=== PATIENT | male | born 1980 | race Caucasian/White ===

== ENCOUNTER 2018-01-11 19:53 | Emergency (ER) | payer OTHER ==
--- NOTE | 2018-01-11 20:04 | EDM.PDOC ---
ED HPI GENERAL MEDICAL PROBLEM - General Chief Complaint: Upper Extremity Injury/Pain Stated Complaint: LEFT HAND INJURY Time Seen by Provider: 01/11/18 19:57 Source of Information: Reports: Patient History Limitations: Reports: No Limitations - History of Present Illness INITIAL COMMENTS - FREE TEXT/NARRATIVE: 37 YO WM presents to ER with left ring finger crush injury from forklift hydraulic lift. Pt reports he got his finger distal phalange caught between the hydraulic arm of the lift. Pt denies any other injury. Pt controlled bleeding with compression. Onset: Today Onset Date: 01/11/18 Onset Time: 19:00 Duration: Hour(s): (1) Location: Reports: Upper Extremity, Left Quality: Reports: Ache Severity: Moderate Improves with: Reports: None Worsens with: Reports: None Associated Symptoms: Reports: No Other Symptoms - Related Data Allergies Allergy/AdvReac Type Severity Reaction Status Date / Time No Known Allergies Allergy Verified 01/11/18 20:47 Home Meds: Home Meds Amoxicillin/Clavulanate K [Augmentin 875-125 MG] 1 tab PO BID #20 tablet [Rx] traMADol [Ultram] 50 mg PO Q6H PRN #10 tab 01/11/18 [Rx] Review of Systems - Review of Systems Review Of Systems: See Below Constitutional: Reports: No Symptoms Eyes: Reports: No Symptoms Ears: Reports: No Symptoms Nose: Reports: No Symptoms Mouth/Throat: Reports: No Symptoms Respiratory: Reports: No Symptoms Cardiovascular: Reports: No Symptoms GI/Abdominal: Reports: No Symptoms Genitourinary: Reports: No Symptoms Musculoskeletal: Reports: Hand Pain Skin: Reports: Wound (crush injury to distal 4th phalange) Neurological: Reports: No Symptoms Psychiatric: Reports: No Symptoms ED EXAM, GENERAL - Physical Exam Exam: See Below Exam Limited By: No Limitations General Appearance: Alert, WD/WN, No Apparent Distress Head: Atraumatic, Normocephalic Neck: Normal Inspection, Supple, Non-Tender, Full Range of Motion Respiratory/Chest: No Respiratory Distress, Lungs Clear, Normal Breath Sounds, No Accessory Muscle Use, Chest Non-Tender Cardiovascular: Normal Peripheral Pulses, Regular Rate, Rhythm, No Edema, No Gallop, No JVD, No Murmur, No Rub GI/Abdominal: Normal Bowel Sounds, Soft, Non-Tender, No Organomegaly, No Distention, No Abnormal Bruit, No Mass Rectal (Males) Exam: Normal Exam, Normal Rectal Tone, Prostate Normal Back Exam: Normal Inspection, Full Range of Motion, NT Extremities: Normal Inspection, Normal Range of Motion, No Pedal Edema, Normal Capillary Refill Neurological: Alert, Oriented, CN II-XII Intact, Normal Cognition, Normal Gait, Normal Reflexes, No Motor/Sensory Deficits Psychiatric: Normal Affect, Normal Mood Skin Exam: Warm, Dry, Intact, Normal Color, No Rash, Wound/Incision (crush injury to distal left 4th digit) Lymphatic: No Adenopathy ED TRAUMA EXTREMITY PROCEDURES - Laceration/Wound Repair Left Distal Finger Lac/Wound Length In cm: 5 Appearance: Heavily Contaminated Distal NVT: Neuro & Vascular Intact, No Tendon Injury Anesthetic Type: Digital Local Anesthesia - Lidocaine (Xylocaine): 1% Plain Local Anesthetic Volume: Other (10cc) Skin Prep: Providone-Iodine (Betadine), Saline, Sterile Drape Exploration/Debridement/Repair: Wound Explored, In a Bloodless Field, Explored to Base Closed With: Sutures Suture Size: 4-0 # of Sutures: 8 Sterile Dressing Applied: Provider Tetanus Status Addressed: Yes Complications: No - Splinting Left 4th Digit Pre-Procedure NV Status: Normal Post-Procedure NV Status: Normal Splint Material: Metal Applied & Form Fitted By: Provider Provider Post-Splint Application NV Check: NV Status Normal, Good Position Complications: No Course - Orders/Labs/Meds Orders: Active Orders 24 hr Category Date Time Status Hand Comp Min 3V Lt [CR] Stat Exams 01/11/18 19:59 Ordered Departure - Departure Time of Disposition: 21:22 Disposition: Home, Self-Care 01 Condition: Good Clinical Impression: Crushing injury of finger of left hand, Fracture of distal phalanx of finger of left hand Laceration of finger of left hand Qualifiers: Encounter type: initial encounter Finger: ring finger Damage to nail status: with damage Foreign body presence: without foreign body Qualified Code(s): S61.315A - Laceration without foreign body of left ring finger with damage to nail, initial encounter - Discharge Information Prescriptions: Amoxicillin/Clavulanate K [Augmentin 875-125 MG] 1 tab PO BID #20 tablet traMADol [Ultram] 50 mg PO Q6H PRN #10 tab PRN Reason: Pain Instructions: Crush Injury of the Hand, [id number], Laceration Care, Adult, Finger Fracture Referrals: PCP,Not In Area [Primary Care Provider] - Christopher Perez MD [Physician] - Forms: ED Department Discharge - My Orders Last 24 Hours: My Active Orders 01/11/18 19:59 Hand Comp Min 3V Lt [CR] Stat - Assessment/Plan Last 24 Hours: My Active Orders 01/11/18 19:59 Hand Comp Min 3V Lt [CR] Stat Assessment:: 1. distal left 4th digit fracture and crush injury Plan: 1. Discussed case with Dr Aliya Ordonez who recommended soak/irrigation/ approximation of wound/antibiotics and follow up with hand/ortho this week. 2. Augmentin 875mg PO BID x 10 days 3. Ultram 50mg PO Q6 #10 PRN Pain 4. follow up with ortho- Dr Sanders- Ortho this week 5. return to ER for worsening symptoms
[2018-01-11] MEDS ORDERED: ceFAZolin 1 GM Vial IM ONE (20:49)
[2018-01-11] MEDS ORDERED: Lidocaine 1% 20 ML MDV ONE (20:57)
[2018-01-11] MEDS ORDERED: Water For Injection, Sterile 20 ML ONE (21:06)
[2018-01-11] MEDS ORDERED: Acetaminophen/HYDROcodone 325-10 MG Tab PO PRN (21:29)
== END 2018-01-11 22:00 | disposition home or self-care (01) ==
LOC: KA.ED 19:53
DX: S67.195A Crushing injury of left ring finger, initial encounter (principal); S62.635A Displaced fracture of distal phalanx of left ring finger, initial encounter for closed fracture; S61.315A Laceration without foreign body of left ring finger with damage to nail, initial encounter; W23.0XXA Caught, crushed, jammed, or pinched between moving objects, initial encounter
CPT/HCPCS: 12002; 73130-LT; 96372; 99283; A9270-GY; J0690